=== PATIENT | male | born 1990 | race African-American/Black ===

== ENCOUNTER 2018-01-25 02:04 | Observation (INO) | payer BC ==
[2018-01-25] MEDS ORDERED: MORPHINE SULFATE 10 MG/ML INJ IV ONE ×2 (02:40→04:23)
[2018-01-25] MEDS ORDERED: NORMAL SALINE 1000 ML 1,000 ML IV ONE (02:41)
[2018-01-25] MEDS ORDERED: KETOROLAC TROMETHAMINE INJ/PF 30 MG/1 ML SDV IV ONE ×2 (02:41→04:23)
[2018-01-25] MEDS ORDERED: ONDANSETRON HCL INJ/PF 4 MG/2 ML SDV IV ONE ×2 (02:41→07:49)
--- NOTE | 2018-01-25 02:43 | ER Document Report ---
ED GI/ - General Chief Complaint: Abdominal Pain Stated Complaint: VOMITING WITH ABDOMINAL PAIN Time Seen by Provider: 01/25/18 02:31 Notes: Patient is a 27-year-old male who comes emergency department for chief complaint of upper abdominal pain and multiple episodes of vomiting. Symptoms of pain started 2 hours ago. He states he was diagnosed with gallstones in the past, denies ever having pain like this before. He ate steak and chicken for dinner but this was several hours ago. He denies fever chills, flank pain. He takes no daily medications, denies any surgeries or medical history otherwise. TRAVEL OUTSIDE OF THE [place] IN LAST 30 DAYS: No - Related Data Allergies/Adverse Reactions: No Known Allergies Allergy (Unverified 01/25/18 02:10) Past Medical History - General Information source: Patient - Social History Smoking Status: Never Smoker Drug Abuse: None Lives with: Spouse/Significant other Family History: Reviewed & Not Pertinent Patient has suicidal ideation: No Patient has homicidal ideation: No - Medical History Medical History: Negative Renal/ Medical History: Denies: Hx Peritoneal Dialysis Surgical Hx: Negative - Immunizations Immunizations up to date: Yes Hx Diphtheria, Pertussis, Tetanus Vaccination: Yes Review of Systems - Review of Systems Constitutional: No symptoms reported EENT: No symptoms reported Cardiovascular: No symptoms reported Respiratory: No symptoms reported Gastrointestinal: See HPI Genitourinary: No symptoms reported Male Genitourinary: No symptoms reported Musculoskeletal: No symptoms reported Skin: No symptoms reported Hematologic/Lymphatic: No symptoms reported Neurological/Psychological: No symptoms reported Physical Exam - Vital signs Vitals: Temp Pulse Resp BP Pulse Ox 97.8 F 74 18 136/80 H 100 01/25/18 02:10 01/25/18 02:10 01/25/18 02:10 01/25/18 02:10 01/25/18 02:10 Interpretation: Normal - General General appearance: Anxious In distress: Moderate - Patient in obvious pain, has difficulty holding still on the bed - HEENT Head: Normocephalic, Atraumatic Eyes: Normal Pupils: PERRL - Respiratory Respiratory status: No respiratory distress Chest status: Nontender Breath sounds: Normal Chest palpation: Normal - Cardiovascular Rhythm: Regular Heart sounds: Normal auscultation Murmur: No - Abdominal Inspection: Normal Distension: No distension Bowel sounds: Normal Tenderness: Tender - Very tender in the right upper quadrant and epigastric areas, remaining abdomen is benign, Maya's sign, Guarding Organomegaly: No organomegaly - Back Back: Normal, Nontender. No: Tender, CVA tenderness - Extremities General upper extremity: Normal inspection, Nontender, Normal color, Normal ROM , Normal temperature General lower extremity: Normal inspection, Nontender, Normal color, Normal ROM , Normal temperature, Normal weight bearing. No: Chele's sign - Neurological Neuro grossly intact: Yes Cognition: Normal Orientation: AAOx4 [place] Coma Scale Eye Opening: Spontaneous [place] Coma Scale Verbal: Oriented Beth Coma Scale Motor: Obeys Commands Beth Coma Scale Total: 15 Speech: Normal Motor strength normal: LUE, RUE, LLE, RLE Sensory: Normal - Skin Skin Temperature: Warm Skin Moisture: Dry Skin Color: Normal Course - Re-evaluation Re-evalutation: Patient's examination is concerning with acute cholecystitis on initial presentation. Medicating, keeping n.p.o. CBC shows leukocytosis at 15,000 with elevation of neutrophils but no bandemia. Chemistry unremarkable including normal lipase, LFTs, alk phos, bilirubin. Ultrasound showing cholelithiasis and sludge without evidence of cholecystitis or obstruction. Reevaluated patient, he is improved but he is beginning to have a lot of pain again, will remedicated. Because of patient's frequent pain over the past year , worsening symptoms, presentation, and refractory pain I discussed options with patient. Patient will be discussed with general surgeon. Discussed with Dr. Manley, patient will be admitted to the surgical service, kept n.p.o., given Zosyn. Patient states satisfaction and agreement with this plan. - Vital Signs Vital signs: Temp Pulse Resp BP Pulse Ox 97.6 F 72 16 146/80 H 99 01/25/18 05:48 01/25/18 05:48 01/25/18 05:48 01/25/18 05:48 01/25/18 05:48 - Laboratory Result Diagrams: 01/25/18 03:05 01/25/18 03:05 Laboratory results interpreted by me: 01/25/18 01/25/18 01/25/18 03:05 03:05 04:06 WBC 15.0 H RDW 14.8 H Absolute Neutrophils 10.0 H Potassium 3.5 L Glucose 153 H Total Protein 8.5 H Urine Glucose (UA) 50 H Urine Ketones 80 H Discharge - Discharge Clinical Impression: RUQ abdominal pain Cholelithiasis Qualifiers: Cholelithiasis location: gallbladder Cholecystitis presence: without cholecystitis Biliary obstruction: without biliary obstruction Qualified Code(s) : K80.20 - Calculus of gallbladder without cholecystitis without obstruction Vomiting Qualifiers: Vomiting type: unspecified Vomiting Intractability: non-intractable Nausea presence: with nausea Qualified Code(s): R11.2 - Nausea with vomiting, unspecified Leukocytosis Qualifiers: Leukocytosis type: unspecified Qualified Code(s): D72.829 - Elevated white blood cell count, unspecified Condition: Stable Disposition: ADMITTED OBSERVATION Admitting Provider: Surgicalist Unit Admitted: Surgical Floor
[2018-01-25 03:13] LABS: ABSOLUTE BASOPHILS # (AUTO) 0.1 10^3/uL (0.0-0.2); ABSOLUTE MONOCYTES (AUTO) 0.9 10^3/uL (0.1-1.4); BASOPHILS % (AUTO) 0.4 % (0-2); EOSINOPHILS % (AUTO) 0.2 % (0-6); HEMATOCRIT 44.9 % (37.9-51.0); HEMOGLOBIN 15.6 g/dL (13.5-17.0); LYMPHOCYTES % (AUTO) 26.6 % (13-45); MEAN CORPUSCULAR HEMOGLOBIN 29.7 pg (27.0-33.4); MEAN CORPUSCULAR HGB CONC 34.8 g/dL (32.0-36.0); MEAN CORPUSCULAR VOLUME 85 fl (80-97); MONOCYTES % (AUTO) 6.2 % (3-13); PLATELET COUNT 259 10^3/uL (150-450); RED BLOOD COUNT 5.25 10^6/uL (4.35-5.55); RED CELL DISTRIBUTION WIDTH 14.8 % (11.5-14.0); SEGMENTED NEUTROPHILS % (AUTO) 66.6 % (42-78); TOTAL CELLS COUNTED % (AUTO) 100 %
--- NOTE | 2018-01-25 03:38 | RADIOLOGY REPORT (SQ) ---
EXAM DESCRIPTION: US ABDOMEN LIMITED CLINICAL HISTORY: 27 years Male, RUQ and epigastric pain, vomiting Comparison: None. LIMITATIONS: None. FINDINGS: Gallstones and sludge, gallbladder wall thickness is 0.2 cm, premedicated negative sonographic Maya's test, liver, a 0.3-cm diameter common bile duct, no intrahepatic ductal dilation, 10-cm right kidney, partially obscured pancreas, visualized vasculature/abdominal aorta, and no significant ascites appear otherwise unremarkable. IMPRESSION: No acute findings. Cholelithiasis.
[2018-01-25 03:50] LABS: ALANINE AMINOTRANSFERASE 30 U/L (21-72); ALBUMIN 4.8 g/dL (3.5-5.0); ALKALINE PHOSPHATASE 62 U/L (38-126); ANION GAP 14 (5-19); ASPARTATE AMINO TRANSFERASE 45 U/L (17-59); BILIRUBIN,DIRECT 0.3 mg/dL (0.0-0.4); BILIRUBIN,TOTAL 0.7 mg/dL (0.2-1.3); BLOOD UREA NITROGEN 12 mg/dL (7-20); CALCIUM 9.8 mg/dL (8.4-10.2); CARBON DIOXIDE 27 mmol/L (22-30); CHLORIDE 102 mmol/L (98-107); GLUCOSE 153 mg/dL (75-110); LIPASE 112.6 U/L (23-300); POTASSIUM 3.5 mmol/L (3.6-5.0); SODIUM 142.9 mmol/L (137-145); TOTAL PROTEIN 8.5 g/dL (6.3-8.2)
[2018-01-25] MEDS ORDERED: NORMAL SALINE 1000 ML 1,000 ML IV PRN (04:23)
[2018-01-25] MEDS ORDERED: PIPERACILLIN/TAZOBACTAM 3.375 GM VIAL IV ONE (05:19)
[2018-01-25 05:44] LABS: AMORPHOUS SEDIMENT,URINE TRACE /HPF; APPEARANCE,URINE CLOUDY; BILIRUBIN,URINE NEGATIVE (NEGATIVE); COLOR,URINE YELLOW; GLUCOSE, URINE 50 mg/dL (NEGATIVE); KETONES,URINE 80 mg/dL (NEGATIVE); LEUKOCYTE ESTERASE,URINE NEGATIVE (NEGATIVE); NITRITE,URINE NEGATIVE (NEGATIVE); PROTEIN,URINE NEGATIVE (NEGATIVE); URINE SPECIFIC GRAVITY 1.018; UROBILINOGEN,URINE NEGATIVE mg/dL (<2.0)
--- NOTE | 2018-01-25 05:59 | PDOC H&P ---
History of Present Illness Admission Date/PCP: 01/25/18 05:40 Patient complains of: Right upper quadrant abdominal pain, nausea, and vomiting History of Present Illness: AAKASH CAMPBELL is a 27 year old male with a long history of "gallbladder problems ". The patient has known about his gallstones for 2 years. The patient regulates his symptoms with avoiding fatty foods. Yesterday the patient ate a large, fatty meal. His symptoms began 30-40 minutes after his meal. He reports sharp/stabbing epigastric pain with nausea and vomiting. The symptoms did not go away, and the patient presented to the emergency department. Nothing makes his pain better or worse. The patient relays that his pain as severe and constant last chest pain, shortness of breath, fevers, chills, orthostasis, dizziness, blurry vision, fatigue. Past Medical History Medical History: None Past Surgical History Past Surgical History: Reports: None Social History Smoking Status: Never Smoker Frequency of Alcohol Use: None Hx Recreational Drug Use: No Family History Family History: CAD - Paternal, DM - Maternal Parental Family History Reviewed: Yes Children Family History Reviewed: Yes Sibling(s) Family History Reviewed.: Yes Medication/Allergy Allergies/Adverse Reactions: No Known Allergies Allergy (Unverified 01/25/18 02:10) Review of Systems Constitutional: ABSENT: chills, fatigue, fever(s) Eyes: ABSENT: visual disturbances Ears: ABSENT: hearing changes Nose, Mouth, and Throat: ABSENT: sore throat Cardiovascular: ABSENT: chest pain, dyspnea on exertion, palpitations Respiratory: ABSENT: cough, dyspnea, hemoptysis Gastrointestinal: PRESENT: abdominal pain, nausea, vomiting. ABSENT: hematemesis, hematochezia, melena Genitourinary: ABSENT: dysuria Musculoskeletal: ABSENT: deformity, joint swelling Integumentary: ABSENT: erythema, pruritus, rash Neurological: ABSENT: abnormal gait, abnormal movements, abnormal speech, memory loss, numbness Psychiatric: ABSENT: anxiety, depression, hallucinations Endocrine: ABSENT: cold intolerance, heat intolerance Hematologic/Lymphatic: ABSENT: easy bleeding, easy bruising, lymphadenopathy Physical Exam Vital Signs: Temp Pulse Resp BP Pulse Ox 97.8 F 74 18 136/80 H 100 01/25/18 02:10 01/25/18 02:10 01/25/18 02:10 01/25/18 02:10 01/25/18 02:10 General appearance: PRESENT: mild distress - Abdominal, well-developed, well- nourished Head exam: PRESENT: atraumatic, normocephalic Eye exam: PRESENT: EOMI, PERRLA. ABSENT: conjunctival injection, scleral icterus Mouth exam: PRESENT: neck supple Teeth exam: ABSENT: dental caries, poor dentation Neck exam: ABSENT: lymphadenopathy, meningismus, tenderness, thyromegaly, tracheal deviation Respiratory exam: PRESENT: clear to auscultation bella. ABSENT: chest wall tenderness, rales, rhonchi, tachypnea, wheezes Cardiovascular exam: PRESENT: RRR Pulses: PRESENT: normal radial pulses Vascular exam: PRESENT: normal capillary refill. ABSENT: pallor GI/Abdominal exam: PRESENT: normal bowel sounds, soft, tenderness - Right side. ABSENT: distended, guarding, rebound Rectal exam: PRESENT: deferred Extremities exam: ABSENT: clubbing, tenderness Musculoskeletal exam: PRESENT: normal inspection. ABSENT: tenderness Neurological exam: PRESENT: alert, awake, oriented to person, oriented to place , oriented to time, CN II-XII grossly intact. ABSENT: motor sensory deficit Psychiatric exam: ABSENT: anxious, depressed Skin exam: ABSENT: cyanosis, erythema, jaundice, pallor, rash Results Impressions: Abdomen Ultrasound 01/25/18 02:41 IMPRESSION: No acute findings. Cholelithiasis. Assessment & Plan - Diagnosis (1) Acute calculous cholecystitis Is this a current diagnosis for this admission?: Yes - Inpatient Certification Medical Necessity: Need for IV Antibiotics, Need for Surgery - Plan Summary Plan Summary: This is a 27-year-old male with a long-standing history of gallbladder disease. The patient reports that his pain and nausea started after eating a fatty meal. The patient is experienced this many times before. This time is different, because the patient's pain did not subside spontaneously. The patient has abdominal wall tenderness, gallstones on ultrasound, and symptoms consistent with biliary colic. I believe the patient is experiencing early acute cholecystitis. I will admit the patient to the hospital, begin IV fluids , and start Zosyn. Plan for cholecystectomy in the near future.
[2018-01-25] MEDS ORDERED: BUPIVACAINE HCL 0.25 % INJ/PF (2.5 MG/1 ML) 30 ML VIAL ONE (08:39)
[2018-01-25] MEDS ORDERED: MIDAZOLAM 2 MG/2 ML INJ ONE (09:09)
[2018-01-25] MEDS ORDERED: FENTANYL CITRATE INJ/PF 250 MCG/5 ML AMPULE ONE (09:09)
[2018-01-25] MEDS ORDERED: FENTANYL CITRATE INJ/PF 100 MCG/2 ML AMPUL ONE (09:09)
[2018-01-25] MEDS ORDERED: MORPHINE SULFATE 10 MG/ML INJ ONE (09:10)
[2018-01-25] MEDS ORDERED: PROPOFOL INJ 200 MG/20 ML VIAL IV ONE (09:10)
[2018-01-25] MEDS ORDERED: ACETAMINOPHEN 100 ML IV ONE (09:10)
[2018-01-25] MEDS ORDERED: MEPERIDINE HCL/PF INJ 25 MG/1 ML DISP.SYRIN IV PRN (10:01)
[2018-01-25] MEDS ORDERED: DIPHENHYDRAMINE HCL 50 MG/ML VIAL IV PRN (10:01)
[2018-01-25] MEDS ORDERED: PROMETHAZINE HCL INJ 25 MG/1 ML VIAL IV PRN (10:01)
[2018-01-25] MEDS ORDERED: FENTANYL CITRATE INJ/PF 100 MCG/2 ML AMPUL IV PRN ×3 (10:01)
[2018-01-25] MEDS ORDERED: KETOROLAC TROMETHAMINE INJ/PF 30 MG/1 ML SDV IV PRN (10:46)
[2018-01-25] MEDS ORDERED: MORPHINE SULFATE 10 MG/ML INJ IV PRN (10:46)
[2018-01-25] MEDS ORDERED: ONDANSETRON HCL INJ/PF 4 MG/2 ML SDV IV PRN (10:46)
--- NOTE | 2018-01-25 10:59 | Operative Report ---
Operative Report DATE OF SURGERY: 01/25/18 PREOPERATIVE DIAGNOSIS: Acute cholecystitis with cholelithiasis POSTOPERATIVE DIAGNOSIS: Same OPERATION: Laparoscopic cholecystectomy SURGEON: ALEX FERNANDEZ ANESTHESIA: GA TISSUE REMOVED OR ALTERED: 1 gallbladder with content COMPLICATIONS: None ESTIMATED BLOOD LOSS: scant INTRAOPERATIVE FINDINGS: See below PROCEDURE: After obtaining informed consent, the patient was taken to the operating room. General Anesthesia was induced; the arms were extended, and the abdomen was exposed, and prepped and draped in a sterile fashion. Instrumentation was set up for laparoscopic cholecystectomy. Surgical plan and surgical timeout were conducted. A vertical incision was made above the umbilicus, and a verres needle was inserted uneventfully into the peritoneal cavity. Pneumoperitoneum was established. The verres needle was removed and a 5 mm trocar was inserted and a 5 mm flexible laparoscope was inserted. Visualization of the peritoneal cavity confirmed safe uneventful entry. Under direct visualization 3 additional 5 mm ports were established, one in the subxiphoid position and second in the subcostal position. The gallbladder was grossly edematous consistent with acute cholecystitis. Photos were taken. Laparoscopic decompression trocar inserted into the gallbladder and the gallbladder decompressed of approximately 100 cc of bile. Because of the edematous nature of the infundibulum-cystic duct area, I elected to proceed with a top down approach. Grasper were placed on the gallbladder fundus and the gallbladder was withdrawn from the inferior surface of the right lobe of the liver, and hook cautery was used in a methodical fashion to meticulously remove the gallbladder from the liver plate. Visualization was excellent. Virtually no bleeding was encountered. We worked in a circumferential fashion to the gallbladder suspended solely from the cystic artery and the cystic duct. The anatomy here was classic. There was a significant amount of patient's adhesions between the neck of the gallbladder and the cystic duct. Eventually we able to separate the cystic artery and cystic duct, clipped the cystic artery twice and divided thereby leaving the gallbladder suspended solely by the cystic duct. Photos were taken. We secured the cystic duct proximally using a 0 Endoloop suture. The cystic duct was clipped twice distally and then divided. Graspers were repositioned and the gallbladder was removed uneventfully from the abdominal cavity through the super umbilical port site incision. The specimen was examined, then passed off to pathology for permanent analysis. We returned to the peritoneal cavity check for bleeding, and evidence of bile leak, and there was none. We Confirmed satisfactory placement of clips on cystic duct and cystic artery were secured . At this point we felt the operation was complete. The subcutaneous tissue was then anesthetized with quarter percent Marcaine Sponge and needle counts are correct. All ports removed under direct visualization pneumoperitoneum evacuated, and 5 mm port wounds closed with 3-0 Vicryl suture, benzoin and Steri-Strips. The patient was extubated, and taken to the recovery room in stable condition.
[2018-01-25] MEDS ORDERED: DEXAMETHASONE SOD PHOSPHATE INJ 4 MG/1 ML VIAL ONE (12:07)
[2018-01-25] MEDS ORDERED: VECURONIUM BROMIDE INJ 10 MG VIAL IV ONE (12:07)
[2018-01-25] MEDS ORDERED: GLYCOPYRROLATE INJ 0.4 MG/2 ML VIAL ONE (12:07)
[2018-01-25] MEDS ORDERED: NEOSTIGMINE METHYLSULFATE 10 MG/10 ML VIAL ONE (12:07)
[2018-01-25] MEDS ORDERED: ONDANSETRON HCL INJ/PF 4 MG/2 ML SDV ONE (12:07)
[2018-01-25] MEDS ORDERED: PHENYLEPHRINE HCL INJ/PF 10 MG/1 ML SDV ONE (12:07)
[2018-01-25] MEDS ORDERED: LIDOCAINE 2% INJ-PF (20 MG/ML) 2 ML AMPUL ONE (12:07)
[2018-01-25] MEDS ORDERED: SUCCINYLCHOLINE CHLORIDE INJ 200 MG/10 ML VIAL ONE (12:07)
[2018-01-25 16:33] VITALS: BP 121/72
--- NOTE | 2018-01-26 01:54 | DISCHARGE SUMMARY E ---
Discharge Summary NAME: AAKASH CAMPBELL : 1990 AGE: 27Y ADMITTED: 01/25/2018 DISCHARGED: 01/25/2018 REASON FOR ADMISSION: The patient is a 27-year-old -[place] male with a history of symptomatic cholelithiasis, cholecystitis. He was admitted to the surgical service for definitive management. Please his admission and history and physical for complete documentation. SUMMARY OF HOSPITALIZATION: The patient was kept n.p.o. on IV fluids and taken to the operating room by Dr. Santamaria where he underwent laparoscopic cholecystectomy. He had an acutely inflamed gallbladder with gallstones. The patient tolerated the procedure well, developed no postoperative complications, and the evening of the first operative was felt to receive maximum benefit from the hospitalization and was discharged home. FINAL DIAGNOSES: 1. Symptomatic cholelithiasis, cholecystitis. 2. Status post laparoscopic cholecystectomy. DISPOSITION: The patient will be discharged home to the care of his family. Follow up with Dr. Santamaria or a volunteer patient representative from [facility] in approximately 2 weeks. Take Tylenol and Motrin p.r.n. pain. DICTATING PHYSICIAN: ALEX SANTAMARIA M.D. [id number] PHY#: [id number] ID: [id number] JOB#: [id number] ACCT: [id number] cc:DAVE BAE M.D. >
== END 2018-01-25 16:53 | disposition home or self-care (01) ==
LOC: EDBD → ER 02:04 → EH 05:40 → INOR 11:06 → 2N 11:35
PROVIDERS: ATTEND Surgery
PROC: 0FT44ZZ Resection of Gallbladder, Percutaneous Endoscopic Approach (ICD-10-PCS; principal; 2018-01-25 09:30)
DX: K80.12 Calculus of gallbladder with acute and chronic cholecystitis without obstruction (principal)
CPT/HCPCS: 47562; 96376; 99285; 96361; 96375; 96365; 36415; 83690; 85025; 80053; 81001; 88304 ×2; 76705; G0378 ×2; J2250; J1100; J3010; J3490 ×2; J1885; J2270; J2370; J0330; J2405; J7030; J2704; J2543; J0131; 790